=== PATIENT | female | born 1985 | race Caucasian/White ===

== ENCOUNTER → 2020-01-30 | Outpatient (CLI) | payer OTHER ==
[~2020-01-30] MED LIST: FERR324T5 PO; LEVO75TA PO; PRAM0.12 PO
== END | disposition home or self-care (01) ==
LOC: STAR 10:43 → MERGE 11:00
PROVIDERS: ATTEND Surgery Surgery of the Hand
DX: Z20.828 Contact with and (suspected) exposure to other viral communicable diseases (principal); R22.32 Localized swelling, mass and lump, left upper limb
CPT/HCPCS: 87635

== ENCOUNTER 2020-02-05 09:10 | Day surgery (SDC) | payer OTHER ==
[~2020-02-05] VITALS: Ht 165.1 cm; Wt 73.0 kg
[~2020-02-05 09:10] MED LIST changes: +BUPIVACAINE/PF 0.5% ONE; +LIDOCAINE/PF 1%, 30ML ONE
[2020-02-05] MEDS ORDERED: CHLORHEXIDINE 15 ML UDC MM STA (09:26)
[2020-02-05] MEDS ORDERED: LACTATED RINGERS 1,000 ML IV SCH (09:30)
[2020-02-05] MEDS ORDERED: MIDAZOLAM 1 MG/ML, 2ML ONE (10:03)
[2020-02-05] MEDS ORDERED: FENTANYL PF 250 MCG/5ML ONE (10:03)
[2020-02-05] MEDS ORDERED: CEFAZOLIN 1,000 MG ONE (10:06)
[2020-02-05] MEDS ORDERED: ONDANSETRON 2MG/ML, 2ML ONE (10:06)
[2020-02-05] MEDS ORDERED: PROPOFOL 10 MG/ML, 20ML ONE ×2 (10:06→11:22)
[2020-02-05 10:36] LABS: HCG UR SG 1.008 (1.003-1.030)
[2020-02-05] MEDS ORDERED: LIDOCAINE 1%, 10ML IM ONE (11:21)
[2020-02-05] MEDS ORDERED: hydrALAzine 20 MG/ML, 1ML IV PRN (11:30)
[2020-02-05] MEDS ORDERED: MEPERIDINE/PF 25MG/0.5ML IVPush PRN (11:30)
[2020-02-05] MEDS ORDERED: HALOPERIDOL 5 MG/ML IV PRN (11:30)
[2020-02-05] MEDS ORDERED: HYDROmorphone 1 MG/ML, 1ML INJ IVPush PRN (11:30)
[2020-02-05] MEDS ORDERED: PROMETHAZINE 25 MG/ML, 1ML IVPush PRN (11:30)
[2020-02-05] MEDS ORDERED: OXYcodone 5 MG/5 ML ORAL.SOL UDC PO PRN (11:30)
[2020-02-05] MEDS ORDERED: ACETAMINOPHEN 325 MG TABLET PO PRN (11:30)
[2020-02-05] MEDS ORDERED: morphine SULFATE 10 MG/ML, 1ML IVPush PRN (11:30)
[2020-02-05] MEDS ORDERED: FENTANYL PF 100 MCG/2ML IV PRN (11:30)
[2020-02-05] MEDS ORDERED: LABETALOL 5MG/ML, 20ML IV PRN (11:30)
== END 2020-02-05 13:30 | disposition home or self-care (01) ==
LOC: OUT 09:10
PROVIDERS: ATTEND Surgery Surgery of the Hand
DX: R22.32 Localized swelling, mass and lump, left upper limb (principal); D21.12 Benign neoplasm of connective and other soft tissue of left upper limb, including shoulder; E03.9 Hypothyroidism, unspecified; G25.81 Restless legs syndrome; D64.9 Anemia, unspecified; Z79.890 Hormone replacement therapy; Z79.899 Other long term (current) drug therapy
CPT/HCPCS: 26115; 81025; 88305; J2250; J2704; J7120; J0690; J2405; J3010